=== PATIENT | female | born 1995 | race Caucasian/White ===

== ENCOUNTER 2018-10-13 05:10 | Emergency (ER) | payer BC ==
--- OUTSIDE RECORDS SUMMARY | 2018-10-13 05:12 | XMS REPORT | Summary of Care ---
:1995 Author Name Gabby Ventura R.N. Address Unavailable Unavailable , Care Team Providers Name Role Phone MARVIN VILLEGAS M.D. Unavailable Unavailable Unavailable Unavailable Unavailable Functional Status Name Dates Details Functional status health issues are not documented Status: Name Dates Details Cognitive status health issues are not documented Status: Problems Name Dates Details Breast pain (611.71, N64.4) Status: Active Contraception (V25.9, Z30.9) Status: Active Oral contraceptive pill surveillance (V25.41, Z30.41) Status: Active Urinary urgency (788.63, R39.15) Status: Active Yeast infection (112.9, B37.9) Status: Active Vaginal odor (625.8, N89.8) Status: Active Vaginal discharge (623.5, N89.8) Status: Active Bacterial vaginitis (616.10, N76.0) Status: Active Fibrocystic breast disease (610.1, N60.19) Status: Active Encounter for routine gynecological examination (V72.31, Z01.419) Status: Active Encounter for gynecological examination without abnormal finding (V72.31, Z01.419) Status: Active Follow up (V67.9, Z09) Status: Active Screening for STDs (sexually transmitted diseases) (V74.5, Z11.3) Status: Active Chlamydia (079.98, A74.9) Status: Active Medications Name Dates Details Levonorgestrel-Ethinyl Estrad 0.1-20 MG-MCG Oral Tablet TAKE 1 TABLET DAILY Quantity: 84 Refills: 0 MARVIN VILLEGAS M.D. Start : 20-Mar-2018 Active Allergies and Adverse Reactions Name Dates Details No Known Drug Allergies (Allergy) Status: Active Past Medical History Name Dates Details Breast pain (611.71, N64.4) Status: Active Procedures Procedure Dates Details History of Hernia Repair Completed Immunization Name Dates Details Immunizations not documented Family History Name Dates Details Family history of Acute Myocardial Infarction (V17.3) Comments: Family History Status: Active Family history of Diabetes Mellitus (V18.0) Comments: Family History Status: Active Family history of thyroid disease (V18.19, Z83.49) Comments: Family History Status: Active Name Dates Details Family history of Hypothyroidism Status: Active Family history of Graves' Disease Status: Active Family history of Kenyetta's Thyroiditis Status: Active Social History Name Dates Details - Status: Name Dates Details Never smoker Vital Signs Date Test Result Details No Known Vitals to report Results Date Description Value Details [id number] . [facility] - GC/Chlamydia GC REPORT Negative Chlamydia REPORT Negative Plan of Care Name Dates Details Planned Observations Planned Goals not documented Instructions Name Dates Details Instructions not documented Encounters Appointment; WENDI HULL M.D. On: 02-Feb-2017 11:00 Encounter Diagnosis: Problem not documented Appointment; MARVIN VILLEGAS M.D. On: 01-May-2018 14:20 Encounter Diagnosis: Problem not documented Appointment; MARVIN VILLEGAS M.D. On: 20-Jun-2018 10:30 Encounter Diagnosis: Problem not documented Appointment; MARVIN VILLEGAS M.D. On: 30-Jul-2018 13:30 Encounter Diagnosis: Problem not documented
--- OUTSIDE RECORDS SUMMARY | 2018-10-13 05:12 | XMS REPORT | Clinical Summary ---
:1995 Author Organization [facility] Address [address] [place] [address] Care Team Providers Name Role Phone Volodymyr Norton MD Primary Care Provider Allergies Active Allergy Reactions Severity Noted Date Comments No Known Drug Allergies 02/07/2016 Medications No known medications Active Problems Problem Noted Date S/P Left Knee ACL reconstruction 01/25/2016 Overview: Continue with post ACL protocol Headache 07/05/2015 Weight loss 07/02/2015 Social History Tobacco Use Types Packs/Day Years Used Date Never Smoker Smokeless Tobacco: Never Used Sex Assigned at Date Recorded Not on file Job Start Date Occupation Industry Not on file Not on file Not on file Travel History Travel Start Travel End No recent travel history available. Last Filed Vital Signs Not on file Plan of Treatment Health Maintenance Due Date Last Done Comments CHLAMYDIA SCREENING 2013 INFLUENZA VACCINE 03/20/2018 Results Not on fileafter 10/12/2017 Insurance Payer Benefit Plan / Group Subscriber ID Type Phone Address [facility] xxxxxxxxxxxx PPO Advance Directives Patient has advance care planning documents on file. For more information, please contact:[place] [phone] [place] [address]
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
== END 2018-10-13 06:58 | disposition home or self-care (01) ==
LOC: ER 05:10
DX: S09.90XA Unspecified injury of head, initial encounter (principal); S60.512A Abrasion of left hand, initial encounter; S80.211A Abrasion, right knee, initial encounter
CPT/HCPCS: 70450; 99284